=== PATIENT | male | born 1975 | race Caucasian/White ===

== ENCOUNTER → 2019-03-18 | Outpatient (CLI) | payer OTHER | LOC: EMCIMAGING 09:50 | PROVIDERS: ATTEND Nurse Practitioner | DX: J18.9 Pneumonia, unspecified organism (principal) | CPT/HCPCS: 71046-PN ==

== ENCOUNTER → 2019-03-28 | Outpatient (CLI) | payer OTHER | LOC: EMCIMAGING 14:12 ==